=== PATIENT | male | born 1955 | race Caucasian/White ===

== ENCOUNTER → 2020-01-27 | Day surgery (SDC) | payer BC ==
[~2020-01-27] VITALS: Ht 180.3 cm; Wt 99.8 kg
[~2020-01-27] MED LIST: IOHEXOL-350 100 ML VIAL IV ONE; IV NS 0.9% 250 ML IV ONE; NITROGLYCERIN 0.4 MG/TAB BOTTLE SL ONE
[2020-01-27] MEDS: METOPROLOL TARTRATE INJ 5 MG/5 ML AMPUL IVP PRN ×10 (10:02→10:47)
[2020-01-27 10:47] VITALS: BP 147/78
--- NOTE | 2020-01-27 10:53 | NUR ---
Received this patient from [facility] for CTA. Patient ambulatory, alert / oriented x4, Denies any pain, nor chest pain. VS stables. Resp even and unlabored. Completed the test, given metoprolol 50 mg total, HR unbale to drop below 60, lowest registered was 63. 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 Pt stable to go.
== END | disposition short-term general hospital (02) ==
LOC: CT 09:25
PROVIDERS: ATTEND Registered Nurse
DX: R07.9 Chest pain, unspecified (principal)
CPT/HCPCS: 75574; J3490 ×2; J7050; Q9967